=== PATIENT | male | born 1985 | race Caucasian/White ===

== ENCOUNTER 2022-01-07 17:37 | Emergency (ER) | payer SELFPAY ==
[2022-01-07 17:45] VITALS: BP 173/73; PULSE 98; RESP 18; TEMP 36.8; O2SAT 100
--- NOTE | 2022-01-07 18:19 | ED.URI ---
HPI - URI/Sore Throat General Chief Complaint: Upper Respiratory Infection Stated Complaint: sore throat Time Seen by Provider: 01/07/22 18:17 History of Present Illness HPI Narrative: 36-year-old female presents the emergency room complaints of sore throat, body aches and fever. Patient states she has been feeling symptomatic for the last 3 days. Patient also complaining of dysphagia. Review of Systems Review of Systems: CONSTITUTIONAL: Reports fever EYES: Denies visual changes, redness, or discharge. ENT: Reports sore throat CARDIOVASCULAR: Denies chest pain, palpitations, or edema. RESPIRATORY: Denies cough or dyspnea. GASTROINTESTINAL: Denies abdominal pain, nausea, vomiting, or diarrhea. GENITOURINARY: Denies dysuria or hematuria. SKIN: Denies rash or itching. MUSCULOSKELETAL: Denies back pain, joint pain, or myalgia. NEUROLOGIC: Denies headache, numbness, dizziness, or weakness. PSYCHIATRIC: Denies anxiety or depression. Exam Narrative: GENERAL: ill-appearing, well-nourished, no physical limitations HEAD: Normocephalic, atraumatic. EYES: Conjunctivae normal, PERRLA and EOMI. ENT: Erythematous tonsillar hypertrophy with exudate. NECK: Supple. Bilateral cervical lymphadenopathy CHEST: Clear to auscultation. No respiratory distress. No wheezes rales or rhonchi. No tenderness. HEART: Regular rate and rhythm. No murmur heard. Normal peripheral pulses. EXTREMITIES: Normal range of motion. No edema. No clubbing or cyanosis SKIN: Warm, dry, no rash. No noted wounds NEURO: No focal deficits. Alert and oriented x3. MAEW. CN's II-XI intact bilaterally, normal gait PSYCH: Cooperative. Normal mood and affect. Course Vital Signs Vital signs: Vital Signs Temperature 36.8 C 01/07/22 17:45 Pulse Rate 98 01/07/22 17:45 Respiratory Rate 18 01/07/22 17:45 Blood Pressure 173/73 H 01/07/22 17:45 Pulse Oximetry 100 01/07/22 17:45 Oxygen Delivery Room Air 01/07/22 17:45 Temperature 36.8 C 01/07/22 17:45 Pulse Rate 98 01/07/22 17:45 Respiratory Rate 18 01/07/22 17:45 Blood Pressure 173/73 H 01/07/22 17:45 Pulse Oximetry 100 10/02/22 17:45 Oxygen Delivery Room Air 01/07/22 17:45 MDM - URI/Sore Throat Lab Data Labs: Strep Screen Positive Group A Strep *(Reference Range: Negative)* Discharge Plan Discharge Clinical Impression: Strep sore throat Patient Disposition: Home, Self-Care Condition: Stable Instructions: Antibiotic Form, Strep Throat (DC) Prescriptions: New amoxicillin-pot clavulanate 875-125 mg tablet 1 tablet PO Q12H 10 Days Qty: 20 0RF Follow-up/Referrals: PHYSICIAN,[employer]BER [employer]ER HELPER [Primary Care Provider] - Stand Alone Forms: Work/School Release IP Time of Disposition: 18:18
== END 2022-01-07 18:32 | disposition home or self-care (01) ==
PROVIDERS: Emergency Provider Nurse Practitioner Family
DX: J02.0 Streptococcal pharyngitis (principal)
CPT/HCPCS: 87880; 96372; 99283; J1100